=== PATIENT | female | born 1990 | race Caucasian/White ===

== ENCOUNTER 2020-04-03 13:28 | Emergency (ER) | payer MEDICARE ==
[2020-04-03 13:49] VITALS: BP 145/81
--- NOTE | 2020-04-03 14:45 | ED Physician Documentation ---
PD HPI NVD - Stated complaint Stated Complaint: FATIGUE/STOMACH PX - Chief complaint Chief Complaint: General - History obtained from History obtained from: Patient - History of Present Illness Timing - onset: How many days ago (2) Timing - duration: Days (2) Timing - details: Gradual onset, Still present, Waxing and waning Associated symptoms: Abdominal pain (cramping diffuse to lower abd.), Loss of appetite. No: Fever, Chest pain Contributing factors: Other (she is concerned that it might be lithium toxicity, as these symptoms are c/w it and has had that in the past with high lithium level.). No: Sick contact, Bad food Worsened by: Eating Recently seen: Not recently seen Review of Systems Constitutional: denies: Fever, Chills Nose: denies: Rhinorrhea / runny nose, Congestion Throat: denies: Sore throat Respiratory: denies: Cough GI: reports: Abdominal Pain, Nausea, Diarrhea (loose) Skin: denies: Rash, Lesions Neurologic: reports: Headache, Other (lightheaded) PD PAST MEDICAL HISTORY - Past Medical History Cardiovascular: None Respiratory: None Psych: Bipolar disorder Musculoskeletal: None - Present Medications Home Medications: Ambulatory Orders Medication Instructions Recorded Confirmed Dicyclomine [Bentyl] 10 mg PO QID PRN #20 capsule 04/03/20 Ondansetron Odt [Zofran] 4 mg TL Q6H PRN #20 tablet 04/03/20 PD ED PE NORMAL - Vitals Vital signs reviewed: Yes - General General: Alert and oriented X 3, No acute distress, Well developed/nourished - HEENT HEENT: Pharynx benign - Neck Neck: Supple, no meningeal sign, No adenopathy - Cardiac Cardiac: RRR, No murmur - Respiratory Respiratory: Clear bilaterally - Abdomen Abdomen: Normal bowel sounds, Non distended, No organomegaly, Other (mild general tenderness without focality. No percussion nor rebound tenderness. ) - Female Female : Deferred - Rectal Rectal: Deferred - Back Back: No CVA TTP - Derm Derm: Normal color, Warm and dry - Neuro Neuro: Alert and oriented X 3, No motor deficit, Normal speech Results - Vitals Vitals: Oxygen O2 Source Room air - Labs Labs: Laboratory Tests 04/03/20 04/03/20 04/03/20 15:10 15:30 15:30 WBC 17.5 H RBC 4.68 Hgb 13.3 Hct 40.1 MCV 85.7 MCH 28.4 MCHC 33.2 RDW 13.8 Plt Count 327 MPV 10.6 Neut # (Auto) 13.8 H Lymph # (Auto) 2.7 [place] # (Auto) 0.7 Eos # (Auto) 0.1 Baso # (Auto) 0.1 Absolute Nucleated RBC 0.00 Nucleated RBC % 0.0 Sodium 138 Potassium 3.6 Chloride 104 Carbon Dioxide 22 Anion Gap 12.0 BUN 13 Creatinine 0.6 Estimated GFR (MDRD) 116 Glucose 201 H Calcium 10.3 Magnesium 1.8 Total Bilirubin 0.3 AST 20 ALT 15 Alkaline Phosphatase 90 Total Protein 7.7 Albumin 3.6 Globulin 4.1 Albumin/Globulin Ratio 0.9 L Urine Color Urine Clarity Urine pH Ur Specific [place] Urine Protein Urine Glucose (UA) Urine Ketones Urine Occult Blood Urine Nitrite Urine Bilirubin Urine Urobilinogen Ur Leukocyte Esterase Urine RBC Urine WBC Ur Squamous Epith Cells Urine Bacteria Urine Culture Comments Last Dose Date UNK Last Dose Time UNK [place] 0.33 04/03/20 16:20 WBC RBC Hgb Hct MCV MCH MCHC RDW Plt Count MPV Neut # (Auto) Lymph # (Auto) [place] # (Auto) Eos # (Auto) Baso # (Auto) Absolute Nucleated RBC Nucleated RBC % Sodium Potassium Chloride Carbon Dioxide Anion Gap BUN Creatinine Estimated GFR (MDRD) Glucose Calcium Magnesium Total Bilirubin AST ALT Alkaline Phosphatase Total Protein Albumin Globulin Albumin/Globulin Ratio Urine Color YELLOW Urine Clarity CLEAR Urine pH 5.5 Ur Specific [place] >=1.030 H Urine Protein NEGATIVE Urine Glucose (UA) NEGATIVE Urine Ketones NEGATIVE Urine Occult Blood NEGATIVE Urine Nitrite NEGATIVE Urine Bilirubin NEGATIVE Urine Urobilinogen 0.2 (NORMAL) Ur Leukocyte Esterase NEGATIVE Urine RBC None Seen Urine WBC 0-3 Ur Squamous Epith Cells MOD Squamous H Urine Bacteria None Seen Urine Culture Comments NOT INDICATED Last Dose Date Last Dose Time [place] Departure - Departure Disposition: 01 Home, Self Care Clinical Impression: Nausea, Abdominal cramps Condition: Stable Record reviewed to determine appropriate education?: Yes Instructions: ED Nausea Vomiting Prescriptions: Dicyclomine [Bentyl] 10 mg PO QID PRN #20 capsule PRN Reason: Abdominal Pain Ondansetron Odt [Zofran] 4 mg TL Q6H PRN #20 tablet PRN Reason: Nausea / Vomiting Discharge Date/Time: 04/03/20 17:30
[2020-04-03 15:59] LABS: CREATININE 0.6 mg/dL (0.4-1.0)
[2020-04-03 16:00] LABS: ALBUMIN 3.6 g/dL (3.2-5.5); ALBUMIN/GLOBULIN RATIO 0.9 (1.0-2.2); BILIRUBIN,TOTAL 0.3 mg/dL (0.2-1.0); CALCIUM 10.3 mg/dL (8.5-10.3); MAGNESIUM 1.8 mg/dL (1.7-2.8); TOTAL PROTEIN 7.7 g/dL (6.7-8.2)
[2020-04-03 16:15] LABS: BASOPHILS # (AUTO) 0.1 10^3/uL (0.0-0.1); BASOPHILS % (AUTO) 0.5 %; EOSINOPHILS # (AUTO) 0.1 10^3/uL (0.0-0.7); EOSINOPHILS % (AUTO) 0.6 %; HGB - HEMOGLOBIN 13.3 g/dL (12.0-16.0); LYMPHOCYTES # (AUTO) 2.7 10^3/uL (1.5-3.5); LYMPHOCYTES % (AUTO) 15.4 %; MEAN CORPUSCULAR HEMOGLOBIN 28.4 pg (27.0-31.0); MEAN CORPUSCULAR HGB CONC 33.2 g/dL (32.0-36.0); MEAN CORPUSCULAR VOLUME 85.7 fL (81.0-99.0); MEAN PLATELET VOLUME 10.6 fL (7.9-10.8); MONOCYTES # (AUTO) 0.7 10^3/uL (0.0-1.0); MONOCYTES % (AUTO) 3.9 %; NEUTROPHILS # (AUTO) 13.8 10^3/uL (1.5-6.6); NEUTROPHILS % (AUTO) 78.8 %; PLT - PLATELET COUNT 327 10^3/uL (130-450); RED BLOOD COUNT 4.68 10^6/uL (4.20-5.40); RED CELL DISTRIBUTION WIDTH 13.8 % (12.0-15.0); WHITE BLOOD COUNT 17.5 x10^3/uL (4.8-10.8)
[2020-04-03 16:28] LABS: LITHIUM 0.33 mmol/L
[2020-04-03] MEDS ORDERED: ONDANSETRON ODT 4 MG TABLET ONE (16:29)
[2020-04-03] MEDS ORDERED: ACETAMINOPHEN 325 MG TABLET PO ONE (16:30)
[2020-04-03] MEDS ORDERED: MAG HYDROX/AL HYDROX/SIMETH 30 ML UDC ONE (16:30)
[2020-04-03 16:55] LABS: BILIRUBIN,URINE NEGATIVE (NEGATIVE); GLUCOSE, URINE (UA) NEGATIVE (NEGATIVE); KETONES,URINE (UA) NEGATIVE (NEGATIVE); LEUKOCYTE ESTERASE, URINE NEGATIVE (NEGATIVE); NITRITE,URINE NEGATIVE (NEGATIVE); OCCULT BLOOD,URINE NEGATIVE (NEGATIVE); PH,URINE 5.5 PH (5.0-7.5); PROTEIN,URINE NEGATIVE (NEGATIVE); UROBILINOGEN,URINE 0.2 (NORMAL) E.U./dL (NORMAL)
[2020-04-03 17:00] LABS: BACTERIA,URINE None Seen /HPF (None Seen); CLARITY,URINE CLEAR (CLEAR); RBC,URINE None Seen /HPF (0-5); SQUAMOUS EPITHELIAL CELL,UR MOD Squamous (<= Few)
== END 2020-04-03 17:30 | disposition home or self-care (01) ==
LOC: ED 13:28
DX: R10.30 Lower abdominal pain, unspecified (principal); R11.0 Nausea
CPT/HCPCS: 36415; 80053; 80178; 81001; 83735; 85025; 99283; A9270; Q0162; U0004; 87086

== ENCOUNTER 2020-08-24 12:53 | Outpatient (CLI) | payer MEDICARE, MEDICAID ==
[2020-08-24 13:33] VITALS: BP 112/66
--- NOTE | 2020-08-24 13:33 | SLEEP CARE CONSULTATION ---
Information from patient questionnaire entered by Nola Alves. I have reviewed and concur with the information entered by Nola Alves. This document represents the service I personally performed and the decisions made by me, Danielle Rebollar MD, [facility]. History of Present Illness Service Date and Time: 08/24/2020 1253 Reason for Visit: New patient Chief Complaint: reports: Unrefreshed sleep, Excessive daytime sleepiness, Observed pauses in breathing, Fatigue Date of Onset: 10+ years Usual bedtime: 1723-3801 Time it takes to fall asleep: 20-40 minutes Snores at night: Yes (sometimes) Observed to quit breathing while asleep: Yes (at last test, but not recently) Number of times waking at night: 3-5 Reasons for waking at night: reports: Bathroom, Other (nightmares, anxiety) Toss, Turn, or Twitch while sleeping: No Recalls having dreams: Yes Usually gets out of bed at: 0827-6918 Feels refreshed in the morning: No Morning headache: No Sleepy or fatigued during the day: Yes Ever fallen asleep while driving: Yes Takes day naps: Yes (only if she can't stay awake) Dreams during day naps: Yes Prior sleep studies: Yes Year and Where: 10 years ago, [facility] in [place], [place] Additional HPI information: I have the pleasure of seeing Ms. Feliz today regarding the possibility of her having obstructive sleep apnea. As you know, she is a 30 year old lady who complains of loud snore, frequent awakenings, unrefreshed sleep, and excessive daytime sleepiness. She had a sleep study about 10 years ago in [place], [place]. She recalls being told that the sleep-disordered breathing was so mild that it did not require treatment. Now she feels that it has gotten worse. She no longer can sleep flat on her back due to inability to breathe. She has fallen asleep driving. She has to sleep in a recliner. She has hypertension, diabetes mellitus, and gastroesophageal reflux disease. Most of her family has obstructive sleep apnea-hypopnea and uses CPAPs. - Parasomnia Symptoms Ever felt weak in the knees when startled or emotional: Yes Bothered by creepy, crawly, restless sensations in legs: Yes Problems with memory or concentration: Yes Subjective Initial [place] Sleepiness Scale score: 13 (in 2020) Past Medical History Past Medical History: reports: Hypertension, Claustrophobia, Diabetes, Arthritis (Severe bipolar 1, Borderline split personality, PTSD, mood libility, pepticulcer disease, ecxema (mild), seasonal allergies, migraines, inflammitory acne, polycystic ovarian syndrom), Anemia, Anxiety, Asthma, Depression, Mood disorder, GERD Social History The patient's occupation is not employed. Patient is Single and lives in [place]. Have you smoked in the past 12 months: No Alcohol use: No Caffeine use: Yes Caffeine amount and frequency: rare, 3-4 times/year Family History Family history of sleep disordered breathing: Yes Family Hx Sleep Apnea: Mother: Snoring (aunt/uncles), Father: Snoring, Grandparent: Snoring, Other: Snoring Allergies and Home Medications Drug allergies reviewed: Yes (caffeine, fluoxetine, sertraline, escitalopram, azithromycin) Home medication list reviewed: Yes (lithium, omeprazole, glimiperide, sum atriptan, loratadine, hydroxyzine, and) Review of Systems Weight gain over past 5 years: 40-50 Weight loss over past 5 years: 5 Cardiovascular: reports: high blood pressure, palpitations, chest pain, irregular heart rate or pulse, leg or foot swelling, have to sleep sitting up Respiratory: reports: shortness of breath, wheeze, sputum production, chronic cough Gastrointestinal: reports: heartburn, nausea, diarrhea, abdominal pain Urinary: reports: incontinence, frequency, urgency Neurological: reports: headaches, head trauma (past), gait or balance problems (*balance) Psychiatric: reports: anxiety, depression, mood disorder, claustrophobia, other (severe bipolar 1, borderline split personality, PTSD, mood libility) Ear/Nose/Throat: reports: nasal congestion, dry mouth/throat, wisdom teeth removed Endocrine: reports: sluggishness, too hot or cold, excessive thirst, increased appetite, increased urination Musculoskeletal: reports: joint pain, neck pain, back pain Immunologic: reports: sneezing, allergies to food or environment Physical Exam Vital signs obtained and entered by: Dr. Rebollar Blood Pressure: 112/66 Cuff size: regular Heart Rate: 90 O2 Saturation: 98 Height: 5 ft 6 in Weight: 308 lb Body Mass Index: 49.7 BMI Classification: Morbidly Obese Neck circumference: 18 HEENT: No craniofacial malformation Nostrils: patent to airflow Turbinates: normal Septum: midline Mouth and throat: narrow oropharynx Soft palate: long Hard palate: normal Uvula: normal Uvula visualization: 50% Mallampati Class II Tongue: normal in size Tonsils: 1+ Chin and jaw: normal size and position Neck: Thryomegaly Heart: regular rate and rhythm Lungs: clear bilaterally Impression and Plan IMPRESSION: 1. Obstructive Sleep Apnea-Hypopnea Syndrome, probably severe, as evident by history of loud and irregular snoring, frequent awakenings during the night, unrefreshed sleep, cognitive impairment, and daytime hypersomnolence. Narrow oropharynx and obesity are common predisposing factors for obstructive sleep apnea-hypopnea syndrome. Untreated obstructive sleep apnea can also cause hypertension. I recommend proceeding to polysomnography to confirm the diagnosis and to assess severity. If she has significant sleep disordered breathing, a manual CPAP titration study will also be performed to find the optimal treatment pressure. I informed the patient of what the sleep studies involve and after some discussion, she agreed to proceed. Plan: 1. Schedule an in-laboratory polysomnography and return in 1 to 2 weeks after the study to discuss result and initiate therapy. Home sleep apnea test (HSAT) is also a diagnostic option if we can find her old sleep study showing the sleep-disordered breathing. 2. Avoid long distance driving or when feeling sleepy. 3. Avoid alcohol, sedative and muscle relaxant around bedtime. 4. Attempt to lose weight. Bariatric surgery was discussed. Visit Type: In Office Provider Statement: I spent 100% of the Face to Face Visit with the patient with greater than 50% spent counseling the patient and coordination of care.
== END 2020-08-24 12:54 | disposition home or self-care (01) ==
LOC: SC 12:53
PROVIDERS: ATTEND Internal Medicine Pulmonary Disease
DX: G47.10 Hypersomnia, unspecified (principal); G47.8 Other sleep disorders; R41.89 Other symptoms and signs involving cognitive functions and awareness; R06.83 Snoring; E66.01 Morbid (severe) obesity due to excess calories; Z68.42 Body mass index [BMI] 45.0-49.9, adult
CPT/HCPCS: 99202; G0463; 99212

== ENCOUNTER 2020-11-30 13:39 | Outpatient (CLI) | payer MEDICARE, MEDICAID ==
--- NOTE | 2020-11-30 14:21 | SLEEP CARE CONSULTATION ---
Information from patient questionnaire entered by Joana Silverman. I have reviewed and concur with the information entered by Joana Silverman. This document represents the service I personally performed and the decisions made by me, Danielle Rebollar MD, [facility]. History of Present Illness Service Date and Time: 11/30/2020 1339 Initial [place] Sleepiness Scale score: 13 (in 2019) Current [place] Sleepiness Scale score: 12 Additional HPI information: HPI: Ms. Feliz returned for follow up of the sleep study she had recently at the [facility]. The polysomnography showed mild obstructive sleep apnea-hypopnea with an AHI of 8.5 and martin oxygen saturation of 92%. She woke up a lot that night. Snore was moderately loud. EKG showed normal sinus rhythm. The patient was informed of these findings. I explained to her the pathophysiology behind obstructive sleep apnea. We then spent quite a bit of time discussing different treatment options. For mild obstructive sleep apnea, surgery and oral appliance are alternatives to nasal CPAP therapy but in moderate or severe cases, nasal CPAP is the most effective and reliable treatment. After some discussion, she opted to go with the nasal CPAP therapy. I explained to her how CPAP machine works and what to expect when using the machine. She is encouraged to use CPAP every night especially in the first 2 to 3 nights in order to get used to it. She should call me or her CPAP supplier to discuss any mechanical problem that may occur. She will go through different types of interface with the durable medical supplier. Sleep Study - Results Type of Sleep Study: Polysomnography ([facility]) Prior sleep studies: Yes Year and Where: 10 years ago, [facility] in [place], [place] Allergies and Home Medications Drug allergies reviewed: Yes Home medication list reviewed: Yes Review of Systems Review of systems same as previous: Yes Physical Exam Height: 5 ft 6 in Weight: 308 lb Body Mass Index: 49.7 BMI Classification: Morbidly Obese Impression and Plan IMPRESSION: 1. Obstructive Sleep Apnea-Hypopnea Syndrome, mild, not associated with hypoxemia. Possibly, this is the cause of the patients symptoms of nocturnal choking, unrefreshed sleep, and excessive daytime sleepiness. As mentioned above, the patient will be started on CPAP set at 5 -15 cmH2O. Depending on her response and compliance she may be brought back for an overnight CPAP titration study. PLAN: 1. Prescription made for an autoCPAP, heated humidifier, and related supplies. 2. Attempt to lose weight. 3. Return in one month for follow up. I will assess her response and compliance at that time. Counseling Topics: Weight control Prescriptions: Auto CPAP Follow up with Sleep Care in: 1-2 months Visit Type: In Office Time Spent with Patient (minutes): 15 Provider Statement: I spent 100% of the Face to Face Visit with the patient with greater than 50% spent counseling the patient and coordination of care.
== END 2020-11-30 13:40 | disposition home or self-care (01) ==
LOC: SC 13:39
PROVIDERS: ATTEND Internal Medicine Pulmonary Disease
DX: G47.33 Obstructive sleep apnea (adult) (pediatric) (principal); E66.01 Morbid (severe) obesity due to excess calories; Z68.42 Body mass index [BMI] 45.0-49.9, adult
CPT/HCPCS: 99212; G0463

== ENCOUNTER 2021-03-22 13:31 | Outpatient (CLI) | payer MEDICARE, MEDICAID ==
--- NOTE | 2021-03-22 20:03 | SLEEP CARE CONSULTATION ---
Information from patient questionnaire entered by Nola Alves. I have reviewed and concur with the information entered by Nola Alves. This document represents the service I personally performed and the decisions made by me, Danielle Rebollar MD, [facility]. History of Present Illness Service Date and Time: 03/22/2021 1331 Previous diagnosis: Mild, Obstructive Sleep Apnea-Hypopnea Syndrome AHI: 8.5 Reason for follow up: first compliance Equipment type: CPAP Equipment obtained from: Other ([facility]) Prior sleep studies: Yes Year and Where: 2020 [facility], [address] [place], [place] Type of Sleep Study: Polysomnography ([facility]) HPI additional information: Ms. Feliz returned today for follow up of nasal CPAP therapy. She was diagnosed to have mild obstructive sleep apnea-hypopnea syndrome. The patient went to [facility] for the equipment and was fitted with a full face mask because she has nasal congestion.. She reports using the device almost nightly but not all night. The compliance report shows usage in 42 nights out of the past 50 nights, averaging 3.7 hours a night. The > 4 hour compliance rate for the past 30 days is 44%. She complained of no particular problem with the device such as soreness on the face, dry nose, epistaxis, nasal congestion or headache. She thinks that the pressure of 5 - 15 cmH2O is comfortable. On the CPAP she has not noticed much difference.. The [place] Sleepiness Scale score 15. The average residual AHI is 0.2; and air leak, 1 L/min. The 90th percentile pressure is 7.4 cmH2O. Sleep Study - Results Type of Sleep Study: Polysomnography ([facility]) Prior sleep studies: Yes Year and Where: 2020 [facility], [address] [place], [place] CPAP Compliance Data - Data Reviewed with Patient Average duration of nightly device use: 3 hours 40 minutes Compliance rate %: 44 Current pressure setting (cmH2O): 5-15 Average residual AHI: 0.2 Central apnea: 0 Obstructive apnea: 0 Hypopnea: .1 Subjective Missed days of use due to: reports: family emergency, mask issues, illness, other (new puppy) Patient concerns: reports: mask discomfort, air blowing in eyes, mask leak noise, dry mouth, nose, throat, other (headache) Current pressure setting perceived as: comfortable Initial [place] Sleepiness Scale score: 13 (in 2020) Current [place] Sleepiness Scale score: 15 Allergies and Home Medications Drug allergies reviewed: Yes Home medication list reviewed: Yes Review of Systems Review of systems same as previous: Yes Physical Exam Height: 5 ft 6 in Weight: 306 lb Body Mass Index: 49.4 BMI Classification: Morbidly Obese Impression and Plan IMPRESSION: 1. Obstructive Sleep Apnea-Hypopnea Syndrome, mild, with the patient having [id number] compliance. There was a period that she was sick and could not use the CPAP. I patient would like to try it longer. PLAN: 1. Continue with autoCPAP set between 5 and 15 cmH2O. 2. Recommend extending the trial period to 4 months. 3. Try nasal masks. 4. Return for a follow up in one month. Counseling Topics: Weight control Visit Type: In Office Time Spent with Patient (minutes): 15 Provider Statement: I spent 100% of the Face to Face Visit with the patient with greater than 50% spent counseling the patient and coordination of care.
== END 2021-03-22 13:32 | disposition home or self-care (01) ==
LOC: SC 13:31
PROVIDERS: ATTEND Internal Medicine Pulmonary Disease
DX: G47.33 Obstructive sleep apnea (adult) (pediatric) (principal); E66.01 Morbid (severe) obesity due to excess calories; Z68.42 Body mass index [BMI] 45.0-49.9, adult
CPT/HCPCS: 99212; G0463

== ENCOUNTER 2021-04-26 11:26 | Outpatient (CLI) | payer MEDICARE, MEDICAID ==
[2021-04-28 22:12] VITALS: BP 132/78
--- NOTE | 2021-04-28 22:12 | SLEEP CARE CONSULTATION ---
Information from patient questionnaire entered by Byron Delacruz MA. I have reviewed and concur with the information entered by Byron Delacruz MA. This document represents the service I personally performed and the decisions made by me, Danielle Rebollar MD, [facility]. History of Present Illness Service Date and Time: 04/26/2021 1126 Previous diagnosis: Mild, Obstructive Sleep Apnea-Hypopnea Syndrome AHI: 0.2 ([facility] 2020) Reason for follow up: first compliance, one month (ONE MONTH F/U) Equipment type: CPAP Equipment obtained from: [facility] Mask style: Nasal Prior sleep studies: Yes Year and Where: 10 years ago, [facility] in [place], [place] Type of Sleep Study: Polysomnography ([facility]) HPI additional information: Ms. Feliz returned today for follow up of nasal CPAP therapy. She was diagnosed to have mild obstructive sleep apnea-hypopnea syndrome. The patient went to [facility] for the equipment and was fitted with a full face mask because she has nasal congestion.. She indicates that she actually re turned the device last month to the durable medical supplier because she did not meet the compliance criteria and she sleeps better without the CPAP. Sleep Study - Results Type of Sleep Study: Polysomnography ([facility]) Prior sleep studies: Yes Year and Where: 10 years ago, [facility] in [place], [place] CPAP Compliance Data - Data Reviewed with Patient Average duration of nightly device use: 3 HOURS 16 MINUTES Compliance rate %: 27 Current pressure setting (cmH2O): 5-15 Average residual AHI: 0.3 Central apnea: 0 Obstructive apnea: 0 Subjective Initial [place] Sleepiness Scale score: 13 (in 2019) Current [place] Sleepiness Scale score: 15 (in 2020) Allergies and Home Medications Known drug allergies: Yes (caffiene) Drug allergies reviewed: Yes Home medication list reviewed: Yes Review of Systems Review of systems same as previous: Yes Physical Exam Vital signs obtained and entered by: ISIDRO DAVID Blood Pressure: 132/78 (manual left bicept) Cuff size: large Heart Rate: 98 O2 Saturation: 99 (with mask) Height: 5 ft 6 in Weight: 298 lb Body Mass Index: 48.1 BMI Classification: Morbidly Obese Impression and Plan IMPRESSION: 1. Obstructive Sleep Apnea-Hypopnea Syndrome, mild, with the patient unable to tolerate CPAP adequately. Discontinuing the treatment is reasonable because the sleep-disordered breathing is mild. We discussed treatment alternatives. She elects to try to lose weight. I informed her that the diagnosis of obstructive sleep apnea-hypopnea can be used to justify bariatric surgery should she wants to go that route. PLAN: 1. Discontinue the positive airway pressure therapy. 2. Try to lose weight. 3. Return for a follow up on as needed basis, especially is she gains weight. Follow up with Sleep Care in: as needed Follow up recommended for: Weight management Visit Type: In Office Time Spent with Patient (minutes): 15 Provider Statement: I spent 100% of the Face to Face Visit with the patient with greater than 50% spent counseling the patient and coordination of care.
== END 2021-04-26 11:27 | disposition home or self-care (01) ==
LOC: SC 11:26
PROVIDERS: ATTEND Internal Medicine Pulmonary Disease
DX: G47.33 Obstructive sleep apnea (adult) (pediatric) (principal); E66.01 Morbid (severe) obesity due to excess calories; Z68.42 Body mass index [BMI] 45.0-49.9, adult
CPT/HCPCS: 99212; G0463

== ENCOUNTER 2023-06-05 11:45 | Outpatient (CLI) | payer MEDICARE, MEDICAID | END 2023-06-05 12:00 | disposition home or self-care (01) | LOC: LAB.N 11:45 | PROVIDERS: ATTEND Family Medicine | DX: R30.0 Dysuria (principal) | CPT/HCPCS: 87086 ==